=== PATIENT | male | born 1950 | race Caucasian/White ===

== ENCOUNTER → 2018-10-21 | Outpatient (CLI) | payer OTHER ==
[~2018-10-21] MED LIST: IOPAMIDOL 370 MG/ML 200 ML INFUS..BTL INJ ONE; SODIUM CHLORIDE 0.9% 50ML 50 ML ONE
[2018-10-21 14:29] LABS: BLOOD UREA NITROGEN 26 mg/dL (7-26); BUN/CREATININE RATIO 25 (6-25); CREATININE, SERUM 1.03 mg/dL (0.72-1.25); EST GLOMERULAR FILTRATION RATE > 60 ML/MIN (60-)
--- NOTE | 2018-10-21 15:50 | Diagnostic Imaging Report ---
EXAMINATION: CT scan of the chest with contrast. TECHNIQUE: Helical CT images of the chest were performed from the lung apices to the level of the adrenal glands after the intravenous administration of 100 cc of Omnipaque 300. Coronal and sagittal reformatted images were obtained.Dose modulation, iterative reconstruction, and/or weight based adjustment of the mA/kV was utilized to reduce the radiation dose to as low as reasonably achievable. COMPARISON: None. CLINICAL HISTORY:Enlarged hilar area DISCUSSION: LINES/TUBES: None. LUNGS AND AIRWAYS: The lungs are clear. No pulmonary nodules, masses or consolidation. The airways are normal, without endobronchial lesions. PLEURA: No pneumothorax or pleural effusions. HEART AND MEDIASTINUM: The thyroid gland is normal. The heart and pericardium are within normal limits. LYMPH NODES: There is no mediastinal, hilar or axillary lymphadenopathy. ABDOMEN: Hypodensities within the liver, likely cysts. Exophytic cyst of the left kidney. BONES AND SOFT TISSUES: No acute bony abnormalities. IMPRESSION: Unremarkable CT of the chest. Signed by: Dr. Mesfin Macario M.D. on 10/21/2018 3:47 PM
== END ==
LOC: CT 13:37
PROVIDERS: ATTEND Internal Medicine Critical Care Medicine
DX: M89.38 Hypertrophy of bone, other site (principal); R60.9 Edema, unspecified
CPT/HCPCS: 36415; 71260; 82565; 84520; Q9967

== ENCOUNTER → 2021-04-02 | Day surgery (SDC) | payer MEDICARE, OTHER ==
[2021-03-31 14:06] LABS: BASOPHILS # (AUTO) 0.1 (0.0-0.1); BASOPHILS % 0.8 % (0.0-1.0); EOSINOPHILS # (AUTO) 0.3 (0.0-0.4); EOSINOPHILS % 3.4 % (0.0-6.0); HEMATOCRIT 47.7 % (38.2-49.6); HEMOGLOBIN 15.3 g/dL (14.0-18.0); LYMPHOCYTES # (AUTO) 2.1 (1.0-3.2); LYMPHOCYTES % 27.3 % (18.0-39.1); MEAN CORPUSCULAR HEMOGLOBIN 28.8 pg (28-32); MEAN CORPUSCULAR HGB CONC 32.1 g/dL (31-35); MEAN CORPUSCULAR VOLUME 89.7 fL (81-99); MONOCYTES # (AUTO) 0.6 (0.2-0.8); MONOCYTES % 7.2 % (4.4-11.3); NEUTROPHILS # (AUTO) 4.6 (2.1-6.9); NEUTROPHILS % 60.9 % (38.7-80.0); PLATELET COUNT 239 x10e3/uL (140-360); RED BLOOD COUNT 5.32 x10e6/uL (4.3-5.7); RED CELL DISTRIBUTION WIDTH 13.5 % (11.7-14.4)
[2021-03-31 14:31] LABS: ANION GAP 13.6 mmol/L (8-16); CALCIUM 9.3 mg/dL (8.4-10.2); CREATININE, SERUM 1.09 mg/dL (0.72-1.25); POTASSIUM 4.6 mmol/L (3.5-5.1)
[~2021-04-02] MED LIST changes: +BUPIVACAINE 0.25% 30ML SDV ONE; +DEXAMETHASONE SOD PHOS INJ 4 MG/ML SDV ONE; +FENTANYL CITRATE/PF 100MCG/2 ML INJ ONE; +FLOMAX0.4 MG PO; +FLONASE ALLERG9.9 ML INH; -IOPAMIDOL 370 MG/ML 200 ML INFUS..BTL INJ ONE; +LIDOCAINE HCL 2% LOCAL INJ 5 ML SDV VIAL INJ ONE; +MIDAZOLAM HCL 2 MG/2 ML VIAL ONE; +ONDANSETRON HCL INJ 2MG/ML 2ML 2 MG/ML VIAL ONE; +POVIDONE IODINE 0.05% 0.05 % ML PO ONE; +PROPOFOL IV EMULSION 10 MG/ML 20 ML VIAL ONE; +SEVOFLURANE INHAL SOLN 250 ML PEN BTL ONE; -SODIUM CHLORIDE 0.9% 50ML 50 ML ONE
[2021-04-02 11:03] VITALS: BP 121/76
== END | disposition home or self-care (01) ==
LOC: OR 06:20
PROVIDERS: ATTEND Surgery
DX: K42.0 Umbilical hernia with obstruction, without gangrene (principal); G47.33 Obstructive sleep apnea (adult) (pediatric); J44.9 Chronic obstructive pulmonary disease, unspecified; N40.0 Benign prostatic hyperplasia without lower urinary tract symptoms; Z88.1 Allergy status to other antibiotic agents; Z01.810 Encounter for preprocedural cardiovascular examination; Z01.812 Encounter for preprocedural laboratory examination; Z01.818 Encounter for other preprocedural examination; Z20.822 Contact with and (suspected) exposure to COVID-19; Z87.891 Personal history of nicotine dependence; Z79.899 Other long term (current) drug therapy
CPT/HCPCS: 36415; 49587; 71046; 80048; 85025; 93005; C1781; J1100; J2001; J2405; J2704; U0002; J2250; J3010